=== PATIENT | male | born 1970 | race Caucasian/White ===

== ENCOUNTER 2021-02-07 13:48 | Emergency (ER) | payer SELFPAY ==
[~2021-02-07] VITALS: Ht 177.8 cm; Wt 100.0 kg
[2021-02-07] MEDS ORDERED: TRAMADOL HYDROC50 M1 PO (17:32)
[2021-02-07 17:44] VITALS: BP 140/81
== END 2021-02-07 17:50 | disposition home or self-care (01) | DRG 204 ==
LOC: ED 13:48
DX: R07.81 Pleurodynia (principal); F17.210 Nicotine dependence, cigarettes, uncomplicated; W19.XXXA Unspecified fall, initial encounter

== ENCOUNTER 2022-02-16 20:06 | Emergency (ER) | payer SELFPAY ==
[~2022-02-16] VITALS: Ht 177.8 cm; Wt 85.0 kg
[~2022-02-16 20:06] MED LIST: TRAMADOL HYDROC50 M1 PO
[2022-02-16 20:35] VITALS: BP 127/83
[2022-02-16] MEDS ORDERED: ERYTHROMYCIN O3.5 GM OD (21:01)
[2022-02-16 21:22] VITALS: BP 127/83
== END 2022-02-16 21:28 | disposition home or self-care (01) | DRG 125 ==
LOC: ED 20:06
DX: T15.01XA Foreign body in cornea, right eye, initial encounter (principal); S00.251A Superficial foreign body of right eyelid and periocular area, initial encounter